=== PATIENT | male | born 2000 | race Caucasian/White ===

== ENCOUNTER → 2019-01-03 09:13 | Day surgery (SDC) | payer OTHER ==
[~2019-01-03 09:13] MED LIST: Atracurium* 10 MG/ML 10 ML VIAL ONE; Buffered Lidocaine 1% SYRIN* 1 ML/SYRINGE INTRADERM ONE; Bupivacaine 0.5%* 50 ML VIAL ONE; Dexamethasone IV* 4 MG/ML 1 ML (4 MG) IV SLOW PU ONE; Dexamethasone IV* 4 MG/ML 1 ML (4 MG) ONE; DiMENhydriNATE IV* 50 MG/ML VIAL IV PUSH PRN; EPINEPHRINE 1 MG/ML 1 ML VIAL ONE; Famotidine IV* 10 MG/ML 2 ML (20 mg) IV ONE; Famotidine IV* 10 MG/ML 2 ML (20 mg) ONE; HYDROmorphone INJ1* 1 MG/ML SYRINGE IV PRN; Ibuprofen TAB* 600 MG ONE; Ketorolac INJ* 30 MG/ML 1 ML VIAL ONE; Lactated Ringers 1000 ML Bag* 1,000 ML IV SCH; Lidocaine 2% PF * 5 ML VIAL ONE; Midazolam* 1 MG/ML 5 ML VIAL (5 MG) ONE; Naloxone* 0.4 MG/ML 1 ML VIAL IV PRN; Ondansetron INJ* 2 MG/ML VIAL IV PRN; Ondansetron INJ* 2 MG/ML VIAL ONE; Propofol* 10 MG/ML 20 ML BTL ONE; ceFAZolin 2 GM PREMIX in ORs 2 GM/50 ML BAG IVPB ONE; fentaNYL* 50 MCG/ML 2 ML VIAL (100 MCG VIAL) IV PRN; fentaNYL* 50 MCG/ML 2 ML VIAL (100 MCG VIAL) ONE; fentaNYL* 50 MCG/ML 5 ML VIAL (250 MCG VIAL) ONE; oxyCODONE/Acetamin 5/325 MG* TAB PO PRN
[2019-01-03 19:02] VITALS: BP 148/79
--- NOTE | 2019-01-05 21:33 | OP ---
DATE OF OPERATION: 01/03/19 [facility] DATE OF : 99 SURGEON: Jens Baldwin MD GENETICS NURSE: SHELLEY Castellanos. A physician office clerk assistant was required for assistance with this operation and positioning, retraction, instrumentation, and closure. Padmini Nagel was also office clerk assistant. ANESTHESIOLOGIST: Dr. Juan Daniel Perkins. ANESTHESIA: General anesthesia, approximately 10 cc of local anesthesia with Marcaine 0.5% with epinephrine. PRE-OP DIAGNOSES: 1. Right knee anterior cruciate ligament tear, complete. 2. Right knee medial collateral ligament and lateral collateral ligament injuries. 3. Right knee displaced lateral meniscus tear, likely radial in orientation. 4. Right knee injury to small posterolateral structures, fabellofibular and arcuate ligaments. POST-OP DIAGNOSES: 1. Right knee anterior cruciate ligament tear, complete. 2. Right knee stable medial collateral ligament and lateral collateral ligament sprains. 3. Right knee displaced lateral meniscus tear, complex, radial, about the popliteal hiatus, not repairable. 4. Right knee injury to small posterolateral structures, fabellofibular and arcuate ligaments. OPERATIVE PROCEDURE: 1. Right knee arthroscopic ACL reconstruction with [id number] autograft. 2. Right knee arthroscopic partial lateral meniscectomy. 3. Attempted right knee arthroscopic lateral meniscus repair, leading to this being a complex/unusual procedure. 4. Right knee examination under anesthesia, medial and lateral collateral ligaments. 5. Unusual complex procedure, modifier 22, for attempted lateral meniscus repair, about the popliteal hiatus, of a complex radial-shaped tear. Given the patient's young age, every attempt was made to try to salvage a repair out of what was pretty clearly irreparable meniscus tissue. This is a difficult repair , all-inside using special instruments given that the capsule could not be incorporated into the repair given the location directly central to the popliteal hiatus and the popliteus. INDICATIONS: The patient is a 18-year-old man, [facility] [employer], who injured his right knee on 12/08/18, 26 days or 3 weeks and 5 days preoperatively. I met the patient on 12/10/18, diagnosed him with likely ACL and MCL ligament injuries, and immediately ordered an MRI. MRI demonstrated a complex injury. Grade 3 ACL tear. At least a type 1, grade 1 injury of the MCL. No full-thickness disruption of the LCL noted, but waviness of it was concerning for grade 2 injury to the lateral collateral ligament. Grade 3 injuries to small posterolateral structures, the fabellofibular and arcuate ligament complex. There was also a displaced lateral meniscus tear. Rather than being displaced into the intercondylar notch, it was displaced posterior to the lateral compartment. I discussed MRI imaging at length with our top musculoskeletal radiologist. We agreed that this must be a radial tear. It was not completely clear where it was going to be present, but it did not appear to involve the posterior root or the anterior horn. I was concerned that this tear might be adjacent to the popliteal hiatus, making a meniscus repair involving the capsule, which is our most standard way of performing meniscus tears, unavailable to us. The patient's knee was significantly swollen at first after his injury. I tried to balance a desire to take him to the operating room immediately because of his displaced meniscus tear versus a desire to allow collateral ligament healing and to allow swelling to decrease. Therefore, I waited several weeks prior to taking him to the operating room. In order to minimize further damage to the meniscus, the patient continued to use crutches, only bore weight when it was not painful, and he did not do physical therapy preoperatively. His swelling reduced. I had thought throughout my first two visits with the patient that it was his MCL rather than his LCL on exam that was more lax, although certainly I know that examiners can be fooled, so I obtained x-ray views of bilateral knees under valgus and varus stress. Valgus and varus stress testing did not show any severe opening of either compartment consistent with a grade 3 injury. For this reason, I felt comfortable not pursuing a posterolateral reconstruction. This would involve reconstruction of the lateral collateral ligament. However, I did speak to the patient about doing an examination under anesthesia as part of my surgical procedure to get additional information on the MCL and the LCL intraoperatively. I discussed risks and potential complications of the procedure with the patient and briefly with his family in preoperative holding. In the clinic, I talked to the patient about the postoperative recovery as well as the long-term repercussions of lateral meniscus repair or partial lateral meniscectomy. I spoke about my concerns that this might be a radial tear adjacent to the popliteal hiatus, possibly limiting its ability to be repaired. The patient acknowledged that he understood that the meniscus might not be repairable. ANTIBIOTICS: Ancef 2 g IV. IV FLUIDS: See Anesthesia notes. TOURNIQUET TIME: 127 minutes at 300 mmHg. Note that there were large scratches with the tourniquet down between the entire 127 minutes making us well within acceptable norms. AHFG-NC-ACCN TIME: 225 minutes. ARTHROSCOPY FLUID UTILIZED: Not known. SPECIMEN: None. IMPLANTS: DeP[employer] Robe [employer] Robe [employer]ite[employer] Odalis [employer] screws, 9 x 23 mm in the femur and 9 x 23 mm in the tibia. Multiple sutures were placed in the lateral meniscus using FiberWire 2-0, FiberWire 0, and Ti-Cron 2-0 suture, although these were removed prior to the completion of the case. ESTIMATED BLOOD LOSS: Minimal. COMPLICATIONS: None. DESCRIPTION OF PROCEDURE: In preoperative holding, the patient signed a written consent. Operative extremity was marked in preoperative holding. The patient was taken back to the operating room and placed supine on operating room table. The patient was sedated and intubated. A tourniquet was placed on the right proximal thigh. The right lower extremity was prepped and draped. A collapsible lateral post was placed on the table. Surgical time-out was performed. Esmarch was applied and tourniquet was elevated to 300 mmHg. I performed an initial examination under anesthesia, noted some laxity with varus and valgus stress, but I resigned to doing this with mini C-arm at the close of the procedure as well. Made my right knee anterolateral arthroscopy portal using standard technique. Commenced my diagnostic arthroscopy. No patellofemoral compartment articular cartilage damage. There was some inflamed tissue anteriorly. Because of the synovitis anteriorly, I made an anteromedial portal under direct visualization. I debrided some of the anterior synovitic tissue. I moved my arthroscope to the medial portal and proceeded down to the intercondylar notch. I confirmed that the ACL was torn. I moved to the medial compartment where there was no articular cartilage damage nor was there any medial meniscus tear. I next moved to the lateral compartment. No articular cartilage damage. I noted that indeed there appeared to be a full-thickness radial tear adjacent to the popliteal hiatus. I examined the lateral meniscus and the anterolateral and anteromedial portals. There was body of lateral meniscus present and in place until a point at about the midsagittal line well anterior to the popliteal hiatus. The popliteus was in full view, unobstructed by any meniscus. I was able to pull the displaced lateral meniscus into the joint. There was a long segment of mincemeat-type quality tissue with a small amount of good looking intact meniscus at its end. That good little bit of meniscus I did not visualize until I pulled that into the lateral compartment from posterior. At first, mincemeat end of the posterior horn was all that was visible. It was clear that I could not use all-inside or inside-out suturing techniques for this meniscus tear because of the presence of the popliteus between the meniscus and the capsule. Likewise, I could not perform an outside-in repair. I had available micro direct pass instruments from [employer], which are designed to perform such a repair in the knee. I also had available retrograde suture passers, Mitek Boling suture passers that I used in a variety of joints. With some difficulty, given the complex nature of this procedure, and the admittedly lesser quality [employer] instrumentation, I placed several simple stitches. I started with 2-0 suture and then my subsequent stitches were of 0 suture. At first, I placed simple stitches running from the anterior body anterior to the popliteal hiatus to the terminal end of the posterior fragment of meniscus, which had 1 good quality nubbin and then a large mincemeat component to it. I placed stitches in these 2 ends and brought them together, but it was clear that this tissue quality was not good enough for an adequate repair. It was clear it was not going to heal. The meniscus had just been shredded, it being a very complex tear with multiple clear lines to the tear. This was after I had spent a good deal of time and effort trying to repair these 2 ends, I realized that it would not heal. Therefore, I removed the stitches I had placed and debrided the mincemeat end of the posterior aspect of the lateral meniscus. This debrided almost instantly, befitting the poor quality tissue. This left 2 good quality meniscus ends, anteriorly and posteriorly. However, it looked as though there was a large gap of tissue between the two. Using a grasper, I attempted to demonstrate that the 2 ends could be brought together. Given this patient's young age, I wanted to try any and everything to get a successful meniscus repair even though I was dubious. Using the above-mentioned suture passers, I placed two simple stitches. I brought those meniscus ends together nicely. I cut the sutures. I assessed my meniscus repair. Unfortunately, it was obvious that the meniscus, with the two ends brought together, had centralized the meniscus, keeping it away from the periphery of the compartment. 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 However, I endeavored to push forward with the procedure and to reassess that later in the case. I should state that this component of the operation, the attempted meniscal repair, was most of the length of the procedure, taking 2 hours and 10 minutes. The ACL reconstruction component of the case, as a comparison, took less than an hour and 40 minutes. After performing the meniscus repair, I ranged the knee, from 0 to 90 degrees and introduced a little light varus and valgus stress. I felt a pop and knew that the meniscus had been retorn. I entered the arthroscope and arthroscopic shaver into the knee. The meniscus had retorn. It was clear that this meniscus was not repairable given the large gap between the 2 ends. I, therefore, debrided with an arthroscopic shaver the suture and the cut ends back to stable rims of meniscus tissue. I next proceeded with the ACL reconstruction procedure. Removed all arthroscopic instruments. Made a standard anterior midline skin incision from the midpoint of the patella or just distal to that to just distal to the distal end of the tibial tubercle. I changed knives, dissected down to the patellar paratenon. Split that longitudinally and feathered it off the patellar tendon. Marked and then took my autograft. I took 10 mm of the inner third of the patellar tendon, which was at least 30 mm of width. I removed a 25 -mm bone block from the patella and a 33- to 34-mm bone block from the tibial tubercle. We closed the patellar tendon with buried [id number] stitches using Ethibond 0 suture. On a back table, I prepared the graft. I removed small pieces of bone to fashion my bone blocks to size 10 for the femur and size 10.5 for the tibia. I placed 1 stitch proximally and 2 distally through the bone blocks. One stitch on either end, I placed several stitches through the tendon as well. I used FiberWire #5 suture for that. The graft was placed on the back table under tension. I next reentered the knee arthroscopically. I debrided much of the remaining ACL with an arthroscopic shaver. I cleared off the lateral wall of the intercondylar notch with an arthroscopic shaver, and a VAPR cautery device. I performed a notchplasty with an arthroscopic bur. I marked with a [place]leton awl, the 10:30 o'clock position. This corresponded nicely to the proximal end of the articular cartilage posteriorly, so I knew it was a position for my tunnel that I would like. I next hyperflexed the knee and placed a Beath pin through my accessory anteromedial portal. I next carefully introduced my acorn 10-mm reamer and reamed my tunnel. Removed instruments and returned to the 90-degree flexion knee position. Placed my tibial ACL guide at 55 degrees. Placed a Beath pin and then drilled a 10.5-mm tunnel. Shaved off detritus. Placed a passing suture and then my graft. In the femur, I placed a nitinol wire, tapped, and then placed a 9 x 23 mm screw. The screw fit was excellent and tight and squeaky. Fully extended the knee. Graft length was perfect with the distal end of it right at the aperture of the bone. Placed nitinol wire, tapped and then placed a 9 x 23 mm Odalis screw. Again, screw fit was excellent and tight. I next examined the knee. No ACL laxity whatsoever. I next introduced the arthroscope into the knee and documented the excellent position of the ACL. Removed all instruments and fluid from the knee. Placed some bone chips from my graft into the patella. Opened 5 cc of cancellous allograft bone chips and used those also to place into the defects in the patella and the tibia. Closed the paratenon layer with [id number] as well as running stitches using Vicryl 2-0 suture. Closed the subcutaneous tissues with buried simple stitches using Vicryl 2- 0 suture. Closure of the arthroscopic skin incisions with [id number] stitches using nylon 3-0 suture. Closure of the long anterior longitudinal incision with a running stitch using nylon 3-0 suture. Local anesthesia was injected into subcutaneous tissues about the skin incisions. Xeroform, 4x4s, ABDs, sterile Webril, Yobany bandages from foot to proximal thigh. Cooling unit placed on the knee. Knee brace placed and locked in full extension. Prior to placement of the last part of the dressing, I brought in a mini C-arm, that was sterile. I performed varus and valgus stress testing of the knee and on both by my feel and by mini C-arm views, there was no abnormal opening on either side. This made me comfortable with the status of the collateral ligaments. It should be noted that realizing that the lateral meniscus component of the procedure would take a long time, I dropped the tourniquet for a long period of time within that part of the procedure and then I reelevated it during the ACL reconstruction. My goal even with time-out was not to exceed 120 minutes and we went several minutes over. The patient was awakened and extubated and taken to the PACU. DISPOSITION: The patient will be discharged home when medically stable. Wound care instructions provided. The patient's pain will be controlled with Percocet as needed. Aspirin for 2 weeks for DVT prophylaxis. Antibiotic, short course, for infection prophylaxis. The patient will start physical therapy immediately. I will limit the patient's weightbearing somewhat for at least 2 weeks, keeping him toe-touch weightbearing, given the significant amount of lateral meniscus that he is lacking as well as his collateral ligament sprains. The patient will follow up with me in clinic 10 to 14 days postoperatively. [id number]/[facility] #: [id number] GUILLERMO
== END | disposition home or self-care (01) ==
LOC: OR 09:13
PROVIDERS: ATTEND Orthopaedic Surgery
DX: S83.511A Sprain of anterior cruciate ligament of right knee, initial encounter (principal); S83.271A Complex tear of lateral meniscus, current injury, right knee, initial encounter; S83.411A Sprain of medial collateral ligament of right knee, initial encounter; S83.421A Sprain of lateral collateral ligament of right knee, initial encounter; S83.31XA Tear of articular cartilage of right knee, current, initial encounter; V00.321A Fall from snow-skis, initial encounter; Y93.23 Activity, snow (alpine) (downhill) skiing, snowboarding, sledding, tobogganing and snow tubing; Y92.39 Other specified sports and athletic area as the place of occurrence of the external cause
CPT/HCPCS: A9270-GY; C1776; J0690; J1100; J1885; J2250; J2405; J2704; J3010